=== PATIENT | female | born 1995 | race Two or more races ===

== ENCOUNTER 2017-02-17 22:53 | Emergency (ER) | payer OTHER ==
[~2017-02-17] VITALS: Ht 162.6 cm; Wt 81.0 kg
[2017-02-17 23:38] LABS: HEMATOCRIT 46.2 % (36.0-46.0); MCH 31.1 PG (29.0-34.0); MCV 91.5 FL (83-99); RBC DIS.WIDTH-CV 11.9 % (11.8-14.6); RBC DIS.WIDTH-SD 39.8 % (39-53); RED BLOOD COUNT 5.05 M/uL (3.80-5.20); WHITE BLOOD COUNT 8.5 K/uL (4.1-10.2)
[2017-02-17 23:47] LABS: AMYLASE 42 IU/L (1-118); CHLORIDE 107 mEq/L (99-109); POTASSIUM 3.8 mEq/L (3.7-5.4); SODIUM 142 mEq/L (136-147)
[2017-02-17 23:48] LABS: GLUCOSE 111 mg/dL (70-99)
[2017-02-17 23:50] LABS: ANION GAP 12 MEQ/L (2-14)
[2017-02-17 23:52] LABS: GFR ESTIMATE (CALCULATED) > 59 mL/min/; SERUM ETHYL ALCOHOL 218 mg/dL
[2017-02-17 23:53] LABS: UREA NITROGEN (BUN) 9 mg/dL (9-23)
[2017-02-17 23:55] LABS: LIPASE 26 U/L (1.0-51.0)
[2017-02-18 00:02] LABS: QUANTITATIVE HCG < 4.0 MIU/ML
[2017-02-18 00:42] LABS: PLATELET COUNT UNABLE TO REPORT K/uL (156-360)
[2017-02-18 00:44] LABS: ABS NEUTROPHIL COUNT 6.1; ATYPICAL LYMPHOCYTE 4.3 %; BAND NEUTROPHILS 0.9 % (0-8.0); EOSINOPHIL ABS CT 0; HEMATOLOGY COMMENT 1 SN; INSTRUMENT ABS NEUTROPHIL CT 5.7 K/uL; LYMPHOCYTES 16.5 % (15.0-45.0); PLAT.SUFFICIENCY ADEQUATE; PLATELET CLUMPS PRESENT - PLATELET COUNTS APPEARS DECREASED; SEG.NEUTROPHILS 71.3 % (46.0-76.0)
[2017-02-18] MEDS ORDERED: ZOFRAN8 MG PO (05:53)
[2017-02-18] MEDS ORDERED: PERCOCET 5/31 TABLET PO (05:53)
[2017-02-18] MEDS ORDERED: KEFLEX500 MG PO (05:53)
[2017-02-18] MEDS ORDERED: SILVADENE20 GM TP (05:53)
[2017-02-18 06:27] VITALS: BP 129/83
== END 2017-02-18 06:28 | disposition home or self-care (01) ==
LOC: EME → TRA 22:53 → EME 22:53 → TRA 02-18 06:28
PROVIDERS: Emergency Medicine
PROC: 0PSJXZZ Reposition Left Radius, External Approach (ICD-10-PCS; principal; 2017-02-17)
DX: S52.592A Other fractures of lower end of left radius, initial encounter for closed fracture (principal); S70.312A Abrasion, left thigh, initial encounter; S50.811A Abrasion of right forearm, initial encounter; S80.211A Abrasion, right knee, initial encounter; V28.5XXA Motorcycle passenger injured in noncollision transport accident in traffic accident, initial encounter; Y92.410 Unspecified street and highway as the place of occurrence of the external cause; F10.129 Alcohol abuse with intoxication, unspecified
CPT/HCPCS: 70450; 71010; 71260; 72125; 72129; 72132; 72170; 73080; 73090; 73110; 74177; 80048; 81003; 82150; 83690; 84702; 85025; 86900; 86901; 99281; 99285; G0480; J0690; J1170; J2250; J2270; J2405; J3010; J7030; J7050